=== PATIENT | female | born 1965 | race Caucasian/White ===

== ENCOUNTER 2019-04-20 10:09 | Observation (INO) ==
[2019-04-20] MEDS ORDERED: IMODIUM PO PRN (15:14)
[2019-04-20] MEDS ORDERED: D5W 1,000 ML IV PRN (15:14)
[2019-04-20] MEDS ORDERED: ZOFRAN IV PRN (15:14)
[2019-04-20] MEDS ORDERED: TUBERSOL ID ONE (15:14)
[2019-04-20] MEDS ORDERED: DESYREL PO PRN (15:14)
[2019-04-20] MEDS ORDERED: NICODERM PATCH TD PRN (15:14)
[2019-04-20] MEDS ORDERED: DULCOLAX PR PRN (15:14)
[2019-04-20] MEDS ORDERED: SINEMET 25/100 PO PRN (15:14)
[2019-04-20] MEDS ORDERED: ATARAX PO PRN (15:14)
[2019-04-20] MEDS ORDERED: BENTYL PO PRN (15:14)
[2019-04-20] MEDS ORDERED: PHENOBARBITAL IV PRN (15:14)
[2019-04-20] MEDS ORDERED: SEROQUEL PO PRN (15:14)
[2019-04-20] MEDS ORDERED: ROBAXIN PO PRN (15:14)
[2019-04-20] MEDS ORDERED: SENOKOT PO PRN (15:14)
[2019-04-20] MEDS ORDERED: LIBRIUM PO SCH (15:15)
[2019-04-20 18:18] LABS: HEMATOCRIT 40.1 % (37.0-47.0); HEMOGLOBIN 13.3 g/dL (12.0-16.0); MCHC 33.2 g/dL (33-37); MCV 90.5 FL (81-99); MPV 9.9 FL (7.4-10.4); RBC 4.43 XMIL (4.2-5.4); RDW 14.5 % (11.5-14.5); WBC 7.21 X1000 (4.8-10.8)
[2019-04-20 18:28] LABS: INR 1.11; PROTIME 14.9 Seconds (11.0-16.0)
[2019-04-20 18:31] LABS: AMYLASE 56 U/L (20-200); LIPASE 41 U/L (13-60)
[2019-04-20 18:35] LABS: AGAP 11; ALBUMIN 3.9 g/dL (3.5-5.0); ALKALINE PHOSPHATASE 106 U/L (32-104); BUN 7 mg/dL (8-22); CALCIUM 9.4 mg/dL (8.8-10.2); CHLORIDE 106 mmol/L (98-107); COSMO 278; CREATININE 0.6 mg/dL (0.5-0.9); ESTIMATED GFR > 60; GLUCOSE 117 mg/dL (70-104); GOT 17 U/L (10-30); GPT 13 U/L (10-36); SODIUM 140 mmol/L (136-145); TCO2 23 mmol/L (25-35); TOTAL PROTEIN 7.2 g/dL (6.3-8.3)
[2019-04-20 19:00] LABS: URINE SOURCE CLEAN CATCH
[2019-04-20 19:04] LABS: BILIRUBIN URINE NEGATIVE (NEGATIVE); BLOOD URINE TRACE (NEGATIVE); COLOR YELLOW; GLUCOSE URINE NEGATIVE (NEGATIVE); KETONE URINE NEGATIVE (NEGATIVE); LEUKOCYTES URINE NEGATIVE (NEGATIVE); NITRITE URINE POSITIVE (NEGATIVE); PH URINE 5.5; PROTEIN URINE TRACE mg/dL (NEGATIVE); SP GRAVITY URINE 1.016; TURBIDITY URINE CLEAR (CLEAR); UR EPITHELIAL CELLS <10 /HPF (<10); URINE BACTERIA 3+ /HPF; URINE RBC <10 /HPF (<10); URINE WBC <10 /HPF (<10); UROBILINOGEN URINE NORMAL (NORMAL)
[2019-04-20 19:25] LABS: UR BENZODIAZEPIN QUAL PRESUMPTIVE POSITIVE (NONE DETECT); UR METHADONE QUAL PRESUMPTIVE POSITIVE (NONE DETECT); UR METHAMPHETAMINE QUAL PRESUMPTIVE POSITIVE (NONE DETECT)
[2019-04-20 19:26] LABS: UR AMPHETAMINES QUAL NONE DETECTED (NONE DETECT); UR BARBITUATES QUAL NONE DETECTED (NONE DETECT); UR CANNABINOIDS QUAL NONE DETECTED (NONE DETECT); UR COCAINE QUAL NONE DETECTED (NONE DETECT); UR OPIATES QUAL NONE DETECTED (NONE DETECT); UR OXYCODONE QUAL NONE DETECTED (NONE DETECT); UR PCP QUAL NONE DETECTED (NONE DETECT); UR PROPOXYPHENE QUAL NONE DETECTED (NONE DETECT); UR TCA QUAL PRESUMPTIVE POSITIVE (NONE DETECT)
[2019-04-20] MEDS: SUBUTEX SL SCH (21:15)
[2019-04-20] MEDS: ZOFRAN ODT PO PRN (21:26)
[2019-04-21] MEDS: SUBUTEX SL SCH ×3 (04:26→17:37)
[2019-04-21] MEDS: TYLENOL PO PRN ×3 (04:27→16:08)
[2019-04-21] MEDS: PROTONIX PO SCH ×2 (05:34→06:49)
[2019-04-21] MEDS: MOTRIN PO PRN ×2 (08:52→12:55)
[2019-04-21] MEDS: ZOFRAN ODT PO PRN (10:26)
[2019-04-21] MEDS: THERA M PLUS PO SCH (12:54)
[2019-04-21] MEDS: VITAMIN B-1 PO SCH (12:54)
[2019-04-21] MEDS: FOLIC ACID PO SCH (12:54)
--- NOTE | 2019-04-21 16:46 | PROGRESS NOTE ---
DATE: 04/21/2019 SUBJECTIVE: Patient notes that she is feeling okay. Still having lots of sweating episodes, also muscle aches. Denies any fevers or chills. PHYSICAL EXAMINATION: Temperature 98 degrees, pulse 85, respiratory rate 18, BP 106/64.General: Patient is awake, alert, currently in no distress. HEENT: Normocephalic. Neck: Supple. Cardiovascular: Regular rate. Chest: Clear. Abdomen: Soft. Extremities: Moves all extremities. Neurologic: No changes. ASSESSMENT: 1. Nausea and vomiting. 2. Abdominal pain. 3. Myalgias. 4. Paresthesias. 5. Paroxysmal sweating. 6. Opiate abuse, withdrawal, and stabilization. PLAN: We are going to continue the patient in the hospital. Continue to follow. Continue Subutex at 4 mg 3 times daily and will follow. cc: Isaac Peña MD
[2019-04-21] MEDS: LIBRIUM PO PRN (20:44)
[2019-04-22] MEDS: PROTONIX PO SCH ×2 (05:28→06:37)
[2019-04-22] MEDS: LIBRIUM PO PRN ×4 (05:28→23:15)
[2019-04-22] MEDS ORDERED: ATARAX PO PRN (06:51)
[2019-04-22] MEDS: SUBUTEX SL SCH (08:48)
[2019-04-22] MEDS: FOLIC ACID PO SCH (10:41)
[2019-04-22] MEDS: THERA M PLUS PO SCH (10:41)
[2019-04-22] MEDS: VITAMIN B-1 PO SCH (10:41)
[2019-04-22] MEDS ORDERED: KLONOPIN PO PRN (11:21)
[2019-04-22] MEDS ORDERED: SUBOXONE 2 MG/0.5 MG FILM SL ONE (11:21)
[2019-04-22] MEDS: TYLENOL PO PRN ×2 (12:05→17:34)
[2019-04-22] MEDS: MOTRIN PO PRN (14:38)
[2019-04-22] MEDS: NEURONTIN PO SCH ×2 (14:38→20:57)
--- NOTE | 2019-04-22 16:51 | PROGRESS NOTE ---
DATE: 04/22/2019 SUBJECTIVE: Patient notes that she is feeling a lot better. Still having some sweating episodes. Denies any fevers or chills. PHYSICAL EXAMINATION: Vital Signs: Reviewed. Temp 97 degrees, pulse 64, respiratory rate 18, BP 118/76. General: Patient is in no current respiratory distress. HEENT: Normocephalic. Neck: Supple. Cardiovascular: Regular rate. Chest: Clear. Abdomen: Soft. Extremities: Moves all extremities. ASSESSMENT: 1. Nausea, vomiting. 2. Abdominal pain. 3. Myalgias. 4. Paresthesias. 5. Paroxysmal sweating. 6. Opiate abuse, withdrawal, and stabilization. PLAN: We are going to continue patient in the hospital, continue Suboxone. We will increase to 11/10. Continue counseling. Further orders as needed. cc: Isaac Peña MD
[2019-04-22] MEDS: MAALOX PLUS LIQUID PO PRN (18:11)
[2019-04-22] MEDS: SUBOXONE 8 MG/2 MG FILM SL SCH (20:57)
[2019-04-22] MEDS ORDERED: SEROQUEL PO SCH (21:00)
[2019-04-23] MEDS: MAALOX PLUS LIQUID PO PRN (01:45)
[2019-04-23 09:00] VITALS: BP 94/54
[2019-04-23] MEDS ORDERED: EFFEXOR XR PO SCH (09:00)
[2019-04-23] MEDS ORDERED: DEXILANT PO SCH (09:00)
[2019-04-23] MEDS ORDERED: ZOFRAN ODT PO PRN (09:03)
[2019-04-23] MEDS: THERA M PLUS PO SCH (09:17)
[2019-04-23] MEDS: SUBOXONE 8 MG/2 MG FILM SL SCH (09:17)
[2019-04-23] MEDS: FOLIC ACID PO SCH (09:18)
[2019-04-23] MEDS: NEURONTIN PO SCH (09:18)
[2019-04-23] MEDS: VITAMIN B-1 PO SCH (09:18)
[2019-04-23] MEDS: ZOFRAN ODT PO PRN (10:06)
[2019-04-23] MEDS: LIBRIUM PO PRN (10:06)
[2019-04-24] MEDS ORDERED: PROTONIX PO SCH (07:00)
--- NOTE | 2019-04-24 14:52 | DISCHARGE SUMMARY ---
ADMISSION DATE: 04/20/2019 DISCHARGE DATE: 04/23/2019 DISCHARGE DIAGNOSES: 1. Nausea vomiting. 2. Abdominal pain. 3. Myalgias. 4. Paresthesias. 5. Opiate abuse withdrawal and stabilization. 6. Chronic anxiety. CONSULTATIONS: None. PROCEDURES: None. BRIEF HOSPITAL COURSE: The patient is a 53-year-old female who presented to the hospital secondary to nausea, vomiting, abdominal pain, myalgias, and paresthesias. She was admitted as noted in the history of present illness, treated in the usual fashion, placed on Subutex initially. She has been on low-dose methadone. She continued to improve. We switched her over to Suboxone. Thankfully, her symptoms although not resolved are better. We did decrease her Klonopin from 2 mg 3 times daily to 1 mg 3 times daily and change to p.r.n. DISPOSITION: Patient will be discharged home. Greater than 30 minutes was spent in total care. Discussed with patient that she needs to continue to wean Klonopin as it does not actually fix any of her anxiety, simply covers it up. We will continue Suboxone 8/2 twice daily. She will follow up in the office and we will continue her home medications as noted on the HPI. cc: Isaac Peña MD
== END 2019-04-23 11:46 | disposition home or self-care (01) ==
LOC: P.DIRADM 16:46 → INTOOBSV 16:46 → P.MEDSURG 17:29
PROVIDERS: ADMIT Family Medicine; ATTEND Family Medicine